=== PATIENT | female | born 1980 | race Asian ===

== ENCOUNTER 2025-06-11 21:46 | Emergency (ER) | payer OTHER, SELFPAY ==
[2025-06-11] VITALS (8 sets, daily range): BP systolic 105–124; BP diastolic 62–72; PULSE 64–83; RESP 18–22; TEMP 37.2; O2SAT 97–100; BMI 24.9
[2025-06-11] MEDS: ONDANSETRON 4 MG/2 ML INJ IV (22:04)
--- NOTE | 2025-06-11 22:19 | DI.CT.S_ITS ---
PROCEDURE: CT HEAD/BRAIN WO CON INDICATIONS: severe vertigo TECHNIQUE: Noncontrast 4.5 mm thick angled axial sections acquired from the foramen magnum to the vertex, with coronal and sagittal reformats. For radiation dose reduction, the following was used: automated exposure control, adjustment of mA and/or kV according to patient size. COMPARISON: None. FINDINGS: Image quality: Diagnostic. CSF spaces: Basal cisterns are patent. No extra-axial fluid collections. Ventricles are normal in size and shape. Brain: No midline shift. No intracranial mass effect or hemorrhage. Rojas- white matter interface is normal. Skull and face: Calvarium and visualized facial bones are intact, without suspicious lesions. Sinuses: Visualized sinuses and mastoids are clear. IMPRESSION: No acute intracranial pathology. Dictated by: Reena Longoria M.D. on 06/11/2025 at 22:51 Approved by: Reena Longoria M.D. on 06/11/2025 at 22:52
[2025-06-11 22:24] LABS: Add Manual Diff / Slide Review NO; Hematocrit 42.0 % (36-46); Hemoglobin 14.2 g/dL (12.0-16.0); Lymphocytes Absolute Auto 1700 /uL (1100-4500); Mean Corpuscular HGB Conc 33.7 % (30-36); Mean Corpuscular Hemoglobin 28.9 PG (26-34); Mean Corpuscular Volume 85.7 fL (80-100); Platelet Count 410 X10^3/uL (150-400)
[2025-06-11 22:40] LABS: Alanine Aminotransferase 22 IU/L (<35); Albumin 4.8 g/dL (3.5-5.0); Albumin Globulin Ratio 1.5 (1.0-2.8); Alkaline Phosphatase 68 U/L (38-126); Blood Urea Nitrogen 7 mg/dL (7-17); Calcium 9.2 mg/dL (8.4-10.2); Carbon Dioxide 22 mmol/L (22-32); Chloride 103 mmol/L (98-107); Estimated Glomerular Filt Rate > 60 mL/min (>60); Globulin 3.3 g/dL (1.7-4.1); Glucose 128 mg/dL (70-99); HEMOLYSIS < 15 (0-50); Potassium 3.7 mmol/L (3.4-5.1); Sodium 136 mmol/L (137-145); Total Protein 8.1 g/dL (6.3-8.2)
[2025-06-11] MEDS: diphenhydrAMINE 50 MG/ML VIAL 25 MG IV (22:45)
--- NOTE | 2025-06-11 23:21 | ED.NAVMDI ---
HPI - Nausea/Vomiting/Diarrhea General Chief complaint: Nausea/Vomiting/Diarrhea Stated complaint: N/Vertigo Time Seen by Provider: 06/11/25 21:56 Source: patient and EMS Mode of arrival: EMS History of Present Illness HPI Narrative: 45-year-old female with history of motion sickness, recently completed vacation boat cruise to [place], had tried scopolamine patch that fell off after the 1st couple of days, applied a new patch behind alternate ear, seemed to be doing pretty well, was able to distant disembark cruise ship vessel in [facility], passenger car tranport by , felt dizzy during car motion. Had significant vertigo, unable to take her own meclizine oral tablets to help control dizziness. Difficulty walking due to significant dizziness. No injury or trauma. No double vision or visual changes. Related Data Allergies Allergy/AdvReac Type Severity Reaction Status Date / Time No Known Drug Allergies Allergy Verified 06/11/25 21:51 Patient History Social History Smoking Status: Never smoker Smoking Status: Never smoker Exam Narrative Exam Narrative: GENERAL: Well-developed patient, in mild distress. HEAD: Atraumatic. Normocephalic. EYES: Pupils equal round and reactive. Extraocular motions intact. No scleral icterus. No injection or drainage. ENT: Nose without bleeding, purulent drainage. Throat without erythema, tonsillar hypertrophy or exudate. Airway patent. NECK: Trachea midline. Non tender CARDIOVASCULAR: Regular rate and rhythm without murmurs, gallops, or rubs. RESPIRATORY: Clear to auscultation. Breath sounds equal bilaterally. No wheezes, rales, or rhonchi. GASTROINTESTINAL: Abdomen soft, non-tender, nondistended. EXTREMITIES: No edema or joint tenderness. BACK: Nontender without deformity or crepitance. No flank tenderness. NEURO: Exam by me after IV Benadryl had been given and neuro imaging done from triage, with significantly improved symptoms. Alert, oriented, cooperative. Clear speech. Cranial nerves unremarkable as tested. Motor 5/5 bilateral upper and lower extremities. [id number] testing normal bilaterally, heel mathis normal bilaterally. Sensory intact to light touch face arm or leg bilaterally. SKIN: No rash or erythema of visible areas Initial Vital Signs Initial Vital Signs: Vital Signs Blood Pressure 124/70 06/11/25 21:49 Course Orders Ordered: Discontinued Medications Diphenhydramine HCl (Diphenhydramine 50 Mg/Ml Vial) 25 mg IV NOW ONE Stop: 06/11/25 22:20 Last Admin: 06/11/25 22:45 Dose: 25 mg Documented By: JESSICA Sodium Chloride (Normal Saline 0.9%) 1,000 mls @ 1,000 mls/hr IV BOLUS ONE Stop: 06/12/25 01:42 Last Infusion: 06/12/25 02:14 Dose: Infused Documented By: Admin: 06/12/25 01:04 Dose: 1,000 mls/hr Documented By: JESSICA Meclizine HCl (Meclizine Hcl 12.5 Mg Tablet) 25 mg PO NOW ONE Stop: 06/12/25 00:13 Last Admin: 06/12/25 00:16 Dose: 25 mg Documented By: JESSICA Ondansetron HCl (Ondansetron 4 Mg/2 Ml Inj) 4 mg IV NOW PRN PRN Reason: Nausea And Vomiting Last Admin: 06/11/25 22:04 Dose: 4 mg Documented By: JESSICA Ondansetron HCl (Ondansetron 4 Mg Odt Prepack) 1 bottle MISC DIRECTED ONE Stop: 06/12/25 00:20 Last Admin: 06/12/25 01:05 Dose: 1 bottle Documented By: JESSICA Vital Signs Vital signs: Vital Signs - 8 hr 06/11/25 21:51 Temperature 98.9 F Pulse Rate 70 Respiratory Rate 18 Blood Pressure 124/70 Pulse Oximetry 98 Oxygen Delivery Method Room Air MDM - Nausea/Vomiting/Diarrhea Lab Data Attestation: I reviewed the patient's lab results. Lab results narrative: White blood cell count 73756, hemoglobin 14.2, platelets adequate. Glucose 128. Normal renal function and serum CO2 and potassium, slight low sodium 136. Liver functions normal. Urinalysis without obvious infection, ketones noted without glucosuria. 06/11/25 21:54 06/11/25 21:54 Labs: Lab Results 06/11/25 Range/Units 21:54 WBC 10.5 (4.5-11.0) X10^3/uL RBC 4.89 (4.0-5.2) X10^6/uL Hgb 14.2 (12.0-16.0) g/dL Hct 42.0 (36-46) % MCV 85.7 (80-100) fL MCH 28.9 (26-34) PG MCHC 33.7 (30-36) % RDW 13.6 (11.6-14.8) % Plt Count 410 H (150-400) X10^3/uL Neut % (Auto) 77.6 H (50-75) % Lymph % (Auto) 15.9 L (25-40) % Walton % (Auto) 3.6 (3-14) % Eos % (Auto) 1.9 L (2-4) % Baso % (Auto) 1.0 (0-2) % Neut # (Auto) 8200 H (6241-4169) /uL Lymph # (Auto) 1700 (5154-1387) /uL Walton # (Auto) 400 (0-900) /uL Eos # (Auto) 200 (0-450) /uL Baso # (Auto) 100 (0-100) /uL Sodium 136 L (137-145) mmol/L Potassium 3.7 (3.4-5.1) mmol/L Chloride 103 (98-107) mmol/L Carbon Dioxide 22 (22-32) mmol/L BUN 7 (7-17) mg/dL Creatinine 0.60 (0.52-1.04) mg/dL Estimated GFR > 60 (>60) mL/min BUN/Creatinine Ratio 11.7 (6-22) Glucose 128 H (70-99) mg/dL Calcium 9.2 (8.4-10.2) mg/dL Total Bilirubin 0.9 (0.2-1.3) mg/dL AST 29 (14-36) IU/L ALT 22 (<35) IU/L Alkaline Phosphatase 68 (38-126) U/L Total Protein 8.1 (6.3-8.2) g/dL Albumin 4.8 (3.5-5.0) g/dL Globulin 3.3 (1.7-4.1) g/dL Albumin/Globulin Ratio 1.5 (1.0-2.8) Point of Care Testing Test Results Negative Urine Dip Bedside Urine Glucose Negative Bedside Urine Bilirubin - Negative Bedside Urine Ketone ++ 40 Urine Specific Victor 1.010 Bedside Urine Occult Blood - Negative Bedside Urine pH 8.0 Bedside Urine Protein - Negative Bedside Urine Urobilinogen - Negative Bedside Urine Nitrite - Negative Bedside Urine Leukocytes - Negative Esterase Imaging Data CT scan - head: Radiologist's Impression: Close Head CT (Signed) Reena Longoria - 06/11/25 [address]?[place] [address] CT Scan Report Signed Patient: Mary Jo Ortiz MR#: [id number] : 1980 Acct:[id number] Age/Sex: 45 / F Date of Service: 06/11/25 Loc: ED Accession Number: [id number] Procedure: CT head/brain wo con Ordering Provider: Paresh Pierce MD PROCEDURE: CT HEAD/BRAIN WO CON INDICATIONS: severe vertigo TECHNIQUE: Noncontrast 4.5 mm thick angled axial sections acquired from the foramen magnum to the vertex, with coronal and sagittal reformats. For radiation dose reduction, the following was used: automated exposure control, adjustment of mA and/or kV according to patient size. COMPARISON: None. FINDINGS: Image quality: Diagnostic. CSF spaces: Basal cisterns are patent. No extra-axial fluid collections. Ventricles are normal in size and shape. Brain: No midline shift. No intracranial mass effect or hemorrhage. Rojas-white matter interface is normal. Skull and face: Calvarium and visualized facial bones are intact, without suspicious lesions. Sinuses: Visualized sinuses and mastoids are clear. IMPRESSION: No acute intracranial pathology. Dictated by: Reena Longoria M.D. on 06/11/2025 at 22:51 Approved by: Reena Longoria M.D. on 06/11/2025 at 22:52 [facility] Narrative Medical decision making narrative: 45-year-old female with history of motion sickness, recently returned from [place] where she was using scopolamine patch, driven by car after completion of cruise, had significant vertigo and nausea and vomiting nonbloody, inability to walk. No history of previous stroke. Unable to keep her home supply of meclizine down due to vomiting. [place] significantly debilitated. CT head noncontrast scan ordered from triage. CT scan noncontrast head, no acute brain changes. See radiology report. Lab data: White blood cell count 72499, hemoglobin 14.2, platelets adequate. Glucose 128. Normal renal function and serum CO2 and potassium, slight low sodium 136. Liver functions normal. Urinalysis without obvious infection, ketones noted without glucosuria. Urine test negative. Urine ketones without glucosuria, IV normal saline fluid bolus. IV Benadryl. Symptoms improved, minimal residual dizziness with isolated head movements. Oral meclizine additionally given. Home pack ondansetron ODT. Trial of ambulation. at bedside. We will hope for discharge home. Further improved, feels like she can go home. DC home with . Return precautions discussed. Discharge Plan Departure Patient Disposition: Home Clinical Impression: Vertigo, Hx of motion sickness Activity Restrictions/Additional Instructions: History of motion sickness. Recent [place] cruise ship trip with use of scopolamine patches, post cruise disembarkation driven by car, with severe vertigo symptoms, unable to keep down your supply of meclizine due to vomiting. CT head study no acute changes. IV Benadryl antihistamine given. Improved symptoms. Subsequent oral meclizine given. Able to ambulate to the bathroom steadily. Likely severe motion sickness due to recent ship and car moving vehicle travel. Home pack oral dissolvable tablet Zofran antinausea medications dispensed, to hopefully help with taking meclizine further doses as needed. Urine ketones noted, likely dehydration, recent vomiting, IV fluids given. Recheck with your regular provider if not improved in the next couple of days. Return to this/nearest emergency department for any change worsening symptoms or any concerns prior. Stand Alone Forms: Patient Portal/API
[2025-06-12] VITALS: BP 114/68; PULSE 76; O2SAT 97
[2025-06-12] MEDS: MECLIZINE HCL 12.5 MG TABLET 25 MG PO (00:16)
[2025-06-12 00:30] VITALS: PULSE 66; RESP 18; O2SAT 97
--- NOTE | 2025-06-12 00:30 | PC.NURSE ---
Pt ambulatory to restroom with 1 person standby. Pt states feeling much better but not yet 100%. Able to ambulate without difficulty or assistance but states I know I'm taking baby steps but it feels like everything is passing me so fast!
[2025-06-12 01:00] VITALS: PULSE 69; O2SAT 97
[2025-06-12] MEDS: SODIUM CHLORIDE 0.9% 1,000 ML 1000 ML IV (01:04)
[2025-06-12] MEDS: ONDANSETRON 4 MG ODT PREPACK 1 BOTTLE MISC (01:05)
[2025-06-12 01:07] VITALS: BP 114/65; PULSE 77; RESP 16; O2SAT 97
[2025-06-12 01:30] VITALS: BP 114/62; PULSE 66; RESP 18; O2SAT 98
== END 2025-06-12 02:17 | disposition home or self-care (01) ==
PROVIDERS: Emergency Provider Emergency Medicine
DX: R42 Dizziness and giddiness (principal); T75.3XXA Motion sickness, initial encounter; Y92.814 Boat as the place of occurrence of the external cause
CPT/HCPCS: 36415; 70450; 80053; 81003; 81025; 85025; 96361; 96374; 96375; 99284; J1200; J2405